=== PATIENT | male | born 1960 | race Caucasian/White ===

== ENCOUNTER 2020-07-31 09:56 | Observation (INO) | payer BC ==
[~2020-07-31] VITALS: Ht 167.6 cm; Wt 113.0 kg
[2020-07-31 10:03] VITALS: BP 148/72
[2020-07-31] MEDS ORDERED: ELIQUIS5 MG PO (10:06)
[2020-07-31] MEDS ORDERED: FENOFIBRATE48 MG PO (10:06)
[2020-07-31] MEDS ORDERED: HYDROCHLOROTHIA25 M2 PO (10:06)
[2020-07-31] MEDS ORDERED: VERAPAMIL ER240 M1 PO (10:07)
[2020-07-31] MEDS ORDERED: LISINOPRIL2.5 MG PO (10:07)
[2020-07-31 10:25] LABS: ABSOLUTE BASOPHILS 0.1 thou/uL (0.0-0.2); ABSOLUTE EOSINOPHILS 0.5 thou/uL (0.0-0.7); ABSOLUTE LYMPHOCYTES 2.4 thou/uL (0.8-5.3); ABSOLUTE NEUTROPHILS 4.6 thou/uL (1.6-8.1); EOSINOPHILS 5.3 %; HEMATOCRIT 40.7 % (42.0-52.0); HEMOGLOBIN 13.8 gm/dL (14.0-18.0); LYMPHOCYTES 28.4 %; MCH 33.8 pg (26.0-34.0); MCHC 33.8 g/dL (28.0-37.0); MCV 100.1 fL (80.0-100.0); MONOCYTES 12.1 %; NUCLEATED RBCS 0 /100WBC; PLATELET COUNT* 296 thou/uL (150-400); POLYS 53.2 %; RBC 4.07 mil/uL (4.50-6.00); RDW-CV 13.8 % (10.5-14.5); WBC 8.6 thou/uL (4.0-11.0)
[2020-07-31 10:31] LABS: CREATININE 1.3 mg/dL (0.6-1.3); POTASSIUM 4.7 mmol/L (3.5-5.1)
[2020-07-31 10:40] LABS: ALBUMIN 4.2 g/dL (3.4-5.0); MAGNESIUM 1.9 mg/dL (1.8-2.4); TOTAL BILIRUBIN 0.5 mg/dL (<0.1-1.0)
[2020-07-31 13:50] LABS: CALCIUM 9.3 mg/dL (8.5-10.1); CREATININE 1.1 mg/dL (0.6-1.3); POTASSIUM 5.2 mmol/L (3.5-5.1)
[2020-07-31 13:53] LABS: PHOSPHORUS* 2.8 mg/dL (2.5-4.9)
[2020-07-31 15:30] VITALS: BP 125/70
[2020-07-31 15:56] VITALS: BP 125/70
[2020-07-31 16:10] VITALS: BP 147/77
--- NOTE | 2020-07-31 16:44 | EKG ---
[place] [address] ELECTROCARDIOGRAM REPORT Name: ALLYSON GOODMAN Room: [address] M.R.#: [id number] Admission: 07/31/20 Attend Phys: Will Oh Discharge: Date of : 56 Date of Service: 07/31/20 1001 Report #: [id number] THIS REPORT FOR: //name// [facility] ED Test Date: 2020-07-31 Test Time: 10:01:00 Pat Name: ALLYSON GOODMAN Department: Room: [facility] Gender: M Cost Estimating Engineer: : [id number] Requested By: Ronnie Wise Order Number: [id number] MD: Cam Caraballo Measurements Intervals Menan Rate: 94 P: 86 OH: 176 QRS: -70 QRSD: 159 T: 2 QT: 380 QTc: 476 Interpretive Statements Sinus rhythm RBBB and LAFB Baseline wander in lead(s) I,aVR,V1,V4,V6 No previous ECG available for comparison Electronically Signed On 07-31-2020 16:43:58 CDT by Cam Caraballo [email or web address] <ELECTRONICALLY SIGNED> By: Cam Caraballo MD, FACC 07/31/20 1643 100 100 Cam Caraballo MD, [facility] /EPI
[2020-07-31 20:00] VITALS: BP 128/77
[2020-08-01] VITALS: BP 125/74
[2020-08-01] MEDS ORDERED: PROTONIX40 M2 PO (00:07)
[2020-08-01 04:00] VITALS: BP 118/77
[2020-08-01 05:18] LABS: ABSOLUTE BASOPHILS 0.1 thou/uL (0.0-0.2); ABSOLUTE EOSINOPHILS 0.4 thou/uL (0.0-0.7); ABSOLUTE LYMPHOCYTES 1.8 thou/uL (0.8-5.3); ABSOLUTE MONOCYTES 0.9 thou/uL (0.0-1.2); ABSOLUTE NEUTROPHILS 3.8 thou/uL (1.6-8.1); BASOPHILS 1.1 %; EOSINOPHILS 5.4 %; HEMOGLOBIN 12.5 gm/dL (14.0-18.0); LYMPHOCYTES 25.9 %; MCH 33.3 pg (26.0-34.0); MCHC 33.9 g/dL (28.0-37.0); MCV 98.5 fL (80.0-100.0); MONOCYTES 12.6 %; MPV 8.2 fl. (7.2-11.1); NUCLEATED RBCS 0 /100WBC; PLATELET COUNT* 256 thou/uL (150-400); RBC 3.76 mil/uL (4.50-6.00); WBC 6.9 thou/uL (4.0-11.0)
[2020-08-01 05:34] LABS: ALBUMIN 3.7 g/dL (3.4-5.0); CALCIUM 9.1 mg/dL (8.5-10.1); CREATININE 1.2 mg/dL (0.6-1.3); TOTAL BILIRUBIN 0.5 mg/dL (<0.1-1.0); TOTAL PROTEIN 6.9 g/dL (6.4-8.2)
[2020-08-01 06:27] LABS: POTASSIUM 4.2 mmol/L (3.5-5.1)
[2020-08-01 08:27] VITALS: BP 121/82
[2020-08-01] MEDS ORDERED: ADVAIR 100-501 EACH INH (12:02)
[2020-08-01] MEDS ORDERED: AZITHROMYCIN500 MG PO (12:02)
[2020-08-01 12:23] VITALS: BP 121/82
--- NOTE | 2020-08-01 13:34 | NUR ---
ASSUMED CARE OF PT APPROX 0730. REASSESMENT COMPLETED CHARTED, MEDICATIONS GIVEN CHARTED. HOURLY ROUNDED, SAFTEY PRECAUTIONS UTILIZED. DEPUTY MANAGER. DISCHARGE TEACHING COMPLETED WITH PT AND SPOUSE, PT VERBALIZED UNDERSTANDING. PT TAKEN TO VEHICLE BY STAFF.
== END 2020-08-01 13:25 | disposition home or self-care (01) ==
LOC: M.ERS 09:56 → M.TBA-ER 11:06 → M.2W 16:08
PROVIDERS: Emergency Medicine Emergency Medical Services; ADMIT Internal Medicine; ATTEND Internal Medicine
DX: J20.8 Acute bronchitis due to other specified organisms (principal); N17.9 Acute kidney failure, unspecified; I10 Essential (primary) hypertension; E78.5 Hyperlipidemia, unspecified; I48.91 Unspecified atrial fibrillation; G47.30 Sleep apnea, unspecified; M06.9 Rheumatoid arthritis, unspecified; J44.9 Chronic obstructive pulmonary disease, unspecified; I25.10 Atherosclerotic heart disease of native coronary artery without angina pectoris; E66.01 Morbid (severe) obesity due to excess calories; Z68.41 Body mass index [BMI] 40.0-44.9, adult; Z87.891 Personal history of nicotine dependence; Z79.899 Other long term (current) drug therapy; Z20.828 Contact with and (suspected) exposure to other viral communicable diseases

== ENCOUNTER → 2021-07-01 | Outpatient (CLI) | payer BC ==
[~2021-07-01] MED LIST: ADVAIR 100-501 EACH INH; AZITHROMYCIN500 MG PO; ELIQUIS5 MG PO; FENOFIBRATE48 MG PO; HYDROCHLOROTHIA25 M2 PO; LISINOPRIL2.5 MG PO; PROTONIX40 M2 PO; VERAPAMIL ER240 M1 PO
== END ==
LOC: M.RAD 15:26
PROVIDERS: ATTEND Internal Medicine Critical Care Medicine
DX: J45.30 Mild persistent asthma, uncomplicated (principal); R05 Cough; R06.00 Dyspnea, unspecified

== ENCOUNTER → 2021-11-04 | Outpatient (CLI) | payer BC ==
--- NOTE | 2021-11-04 19:27 | PF ---
[address] [address] PULMONARY FUNCTION REPORT Name: ALLYSON GOODMAN Room: [facility]#: [id number] Admission: 11/04/21 Attend Phys: Pankaj Avitia MD Discharge: Date of : 56 Report #: [id number] THIS REPORT FOR: cc: Debbi Loyd MD, Lin W. MD Pervez, Adeel MD ~ DATE OF VISIT: 11/04/2021 PULMONARY FUNCTION TEST The FEV1/FVC ratio is decreased to 63% with an FVC normal at 80% and FEV1 decreased to 67%. The FEF 25-75 is also decreased to 37%. After the administration of a bronchodilator, there is no significant increase in any of these values. The patient's post-bronchodilator FEV1 is 2.03 liters. The flow volume loop is concave upwards. The total lung capacity is normal at 89%. The residual volume is also normal at 103%. The DLCO as adjusted for hemoglobin is decreased to 53%. IMPRESSION: 1. Moderate obstruction without evidence of reversibility. 2. Normal lung volumes. 3. DLCO as adjusted for hemoglobin decreased to 53%. <ELECTRONICALLY SIGNED> By: Pankaj Avitia MD 11/04/21 1927 1519 1807Adomenica Avitia MD /nt
== END ==
LOC: M.PUL 11:00
PROVIDERS: ATTEND Internal Medicine Critical Care Medicine
DX: J98.4 Other disorders of lung (principal); J45.30 Mild persistent asthma, uncomplicated